=== PATIENT | male | born 1965 | race Two or more races ===

== ENCOUNTER → 2024-03-20 | Outpatient (CLI) | payer OTHER, SELFPAY ==
--- NOTE | 2024-03-20 10:38 | XR_ITS ---
Examination: Foot, left, 3 views Technique: AP, oblique, lateral views foot, 3 views Date and time of exam: March 20, 2024 1148 hours Comparison February 28, 2024 INDICATIONS: History foot surgery FINDINGS: Prominent osteopenia Stable alignment at the stabilization site first tarsometatarsal joint Significant healing osteotomy proximal phalanx first digit with satisfactory alignment Orthopedic screws distal second metatarsal healed probable osteotomy Stable alignment at the stabilization site proximal interphalangeal joint second digit IMPRESSION: Postsurgical changes with satisfactory alignment
== END | disposition home or self-care (01) ==
PROVIDERS: PCP Internal Medicine; Referring Provider Student in an Organized Health Care Education/Training Program; Visit Provider Student in an Organized Health Care Education/Training Program
DX: Z47.89 Encounter for other orthopedic aftercare (principal)
CPT/HCPCS: 73630

== ENCOUNTER 2024-07-04 10:02 | Outpatient (AMB) | payer OTHER, SELFPAY ==
--- NOTE | 2024-07-04 10:14 | PD.ORTHCLVIS ---
Vital signs 07/04/24 10:15 Height 1.73 m Height Method Stated Weight 99.025 kg Weight Measurement Method Standing Scale BMI 33.2 BP 128/84 Blood Pressure Source Automatic Cuff Blood Pressure Location Left Upper Arm Position Sitting Respiration 18 Pulse 67 Pulse Source Monitor Temp 98.6 F Temp Source Temporal Artery Scan Pulse Oximetry (%) 95 Oxygen Delivery Method Room Air Med/Allergies Allergies & Medications Allergies NKA* Allergy (Uncoded 07/04/24 10:15) Medication Reconciliation cholecalciferol (vitamin D3) 125 mcg (5,000 unit) tablet (Vitamin D3) 1 tab PO QDAY ##0 04/27/17 [History Confirmed 07/04/24] magnesium 30 mg tablet 30 mg PO QDAY #0 tabs 04/27/17 [History Confirmed 07/04/24] simvastatin 10 mg tablet 10 mg PO QDAY ##90 04/27/17 [History Confirmed 07/04/24] Exam Exam Patient is in no acute distress and is cooperative with the examination today. Breathing is nonlabored. In no respiratory distress. Patient has no paraspinal tenderness. Spinal deformity cannot be appreciated. The gait of the patient is nonantalgic Bilateral extremities were evaluated and demonstrates sensation intact to light touch. Palpable pedal pulses are present. No significant edema is present. Bilateral knees were examined and the patient has full strength and range of motion.. The left hip was examined. Patient was able to flex to 90 degrees, adduct to 30 degrees, abduct to 40 degrees, internally rotate to 20 degrees, and externally rotate to 20 degrees. Patient has a negative logroll. Stinchfield is negative. The patient is nontender diffusely to touch. The right hip was examined. Patient was able to flex to 90 degrees, adduct to 30 degrees, abduct to 40 degrees, internally rotate to 20 degrees, and externally rotate to 20 degrees. Patient has a negative logroll. The stinchfield is negative. I reviewed an x-ray from August 2023. This demonstrates preserved joint spaces with minimal arthritis. There is a slight step-off on the acetabulum but this actually is normal to me. He has no pain at all and thus I will not get further imaging for this unless he has persistent pain Assessment and Plan Problem List (1) Arthritis of right hip: Status: Acute Plan: Patient is a pleasant 58-year-old female With right hip pain that has largely resolved. He has mild right hip arthritis. We discussed nonoperative Options including activity modification, anti-inflammatories. He reports he is doing well and does not want any treatment right now. We discussed we can give him meloxicam if he wants. 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 (3493-4792) MA Intake Visit Data Collection New Patient or Established: New Patient (never been to [facility]) Reason for Visit:: RIGHT HIP PAIN Seen by Clinical Staff ONLY (RN/MA): No Exercise Physiologist Certified Required: No PCP or OBGYN visit in last 3 months: Yes Hx Now: No Do You Feel Safe at Home: Yes Authorities Contacted: N/A Questionairres Past Medical History Past Medical History Have you ever been diagnosed with any of the following: Cardiology Problems Hypercholesterolemia: Yes Respiratory Problems Smoking: No Smoking Cessation Counseling: No Smoking Exposure: No Subjective Visit Visit for: new patient and hip (RIGHT) Immunization / Flu Flu Vaccine in the Last 12 Months: No Flu Vaccine Exclusion Criteria: Refused by Patient History of Present Illness Chief complaint: Right hip pain Patient is a pleasant 58-year-old male with groin pain that occurred 1 year ago. The pain has largely resolved. He had bunion surgery on the contralateral side and reports that this did exacerbate the pain. He has no difficulty putting on socks and shoes. The pain is only very intermittent and has largely resolved at this time Pain Pain level (0-10): 4 Pain duration: WITH MOVEMENT Pain location: outside (lateral) Pain quality: aching Pain timing: other (specify) (WHEN BENDING/REACHING) Associated signs & symptoms: none Ambulatory data Ambulatory device: none Treatments Improvement with previous injections: No Improvement with PT: No Improvement with NSAIDS: no Review of Systems Review of Systems: All systems negative unless otherwise noted in HPI.
[2024-07-04 10:15] VITALS: BP 128/84; PULSE 67; RESP 18; TEMP 37; O2SAT 95; BMI 33.2
== END 2024-07-04 10:27 | disposition home or self-care (01) ==
LOC: HODSRG 10:02
PROVIDERS: PCP Internal Medicine; Referring Provider Internal Medicine; Supervising Provider Orthopaedic Surgery Adult Reconstructive Orthopaedic Surgery; Visit Provider Orthopaedic Surgery Adult Reconstructive Orthopaedic Surgery
DX: M16.11 Unilateral primary osteoarthritis, right hip (principal)
CPT/HCPCS: 99204; G0463

== ENCOUNTER 2025-04-03 10:20 | Day surgery (SDC) | payer OTHER, SELFPAY ==
--- NOTE | 2025-04-02 07:00 | EKG_ITS ---
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
[2025-04-02 07:07] VITALS: BMI 32.9
[2025-04-02 07:42] LABS: Collection Type, Urine Clean Catch; Squamous Epithelial Cell,Urine 0 /hpf (0-5)
[2025-04-02 08:52] LABS: Basophils # (Auto) 0.0 Thou/mm3 (0.0-0.2); Basophils % (Auto) 1 % (0-2.5); Eosinophils # (Auto) 0.1 Thou/mm3 (0.0-0.5); Eosinophils % (Auto) 3 % (0-10); Hematocrit 44.8 % (41.0-53.0); Hemoglobin 15.0 g/dL (13.5-16.0); Immature Granulocytes Auto 0.01 Thou/mm3 (0.00-0.00); Lymphocytes # (Auto) 1.3 Thou/mm3 (1.0-4.8); Lymphocytes % (Auto) 28 % (10-50); Mean Corpuscular HGB Conc 33.5 g/dl (31.0-37.0); Mean Corpuscular Hemoglobin 31.9 pg (25.0-35.0); Mean Corpuscular Volume 95 fL (80-100); Monocytes # (Auto) 0.5 Thou/mm3 (0.0-0.8); Monocytes % (Auto) 10 % (0-12); Neutrophils # (Auto) 2.8 Thou/mm3 (1.8-7.7); Neutrophils % (Auto) 59 % (37-80); Nucleated Red Blood Cell # 0.00 Thou/mm3 (0.00-0.00); Nucleated Red Blood Cell % 0 /100 WBC (0); Platelet Count 224 Thou/mm3 (140-440); RDW Standard Deviation 44.3 fL (35.1-43.9); Red Blood Count 4.70 Miln/mm3 (4.50-5.90); White Blood Count 4.7 Thou/mm3 (3.8-10.6)
[2025-04-02 08:53] LABS: Bilirubin,Urine Negative (Negative); Blood,Urine Negative (Negative); Clarity,Urine Clear (Clear/Hazy); Color,Urine Lt-Yellow (Lt Yel-Yel); Glucose, Urine Negative (Negative); Ketones,Urine Negative (Negative); Leukocyte Esterase,Urine Negative (Negative); Nitrite,Urine Negative (Negative); PH,Urine 6.5 (5.0-7.0); Protein,Urine Negative (Neg - Trace); RBC,Urine 4 /hpf (0-3); Specific Gravity,Urine 1.020 (1.001-1.035); Urobilinogen,Urine Negative mg/dL (0.0-1.0); WBC,Urine 1 /hpf (0-5)
[2025-04-02 09:15] LABS: Alanine Aminotransferase 30 U/L (10-49); Albumin, Serum 5.0 gm/dL (3.4-4.8); Albumin/Globulin Ratio 2.1 (1.2-2.2); Alkaline Phosphatase 57 U/L (46-116); Anion Gap 9 (7-16); Aspartate Amino Transferase 28 U/L (0-34); BUN/Creatinine Ratio 13 Ratio (12-20); Bilirubin,Total 0.8 mg/dL (0.3-1.2); Blood Urea Nitrogen 14 mg/dL (9-23); Calcium 9.7 mg/dL (8.3-10.6); Calcium (Corrected) 9.7 mg/dL (8.5-10.1); Carbon Dioxide 28.5 mMol/L (20.0-31.0); Chloride 106 mMol/L (98-107); Creatinine (Component) 1.1 mg/dL (0.6-1.3); Estimated Creatinine Clearance 80.1 mL/min (>60); Globulin 2.4 gm/dL (2.3-3.5); Glucose 103 mg/dL (74-106); Osmolality,Calculated 285 (275-295); Potassium 4.4 mMol/L (3.4-5.1); Sodium 143 mMol/L (136-145); Total Protein 7.4 gm/dL (5.7-8.2); eGFR > 60 See Note
--- NOTE | 2025-04-02 09:23 | ESHP_ITS ---
RE: JOJO HERRERA : 1965 DATE OF ADMISSION: 04/02/2025 HISTORY OF PRESENT ILLNESS: Patient is a 59 year old male with elevated PSA of 5.6. He has nocturia x1. His urinary flow is fair. There is no history of urinary burning or blood in the urine. His PSA is high. Patient had a previous biopsy done 5-10 years ago, which he says it was negative for any cancer. PREVIOUS OPERATIONS: Vasectomy. He had a biopsy of prostate in the past and he had a foot surgery on his left foot. SOCIAL HISTORY: He has two children. ALLERGIES: NONE KNOWN. PAST MEDICAL HISTORY: There is no history of diabetes mellitus or hypertension. MEDICATIONS: He takes atorvastatin and for his cholesterol. PHYSICAL EXAMINATION: Clinical examination reveals: HEENT: Normal. NECK: Supple. LUNGS: Clear. HEART: Heart sounds are normal. ABDOMEN: Soft without any organomegaly. There is no guarding, no rigidity. EXTREMITIES: Normal. GENITOURINARY: Phallus is normal. Testes are down in scrotum. RECTAL: Reveals moderately enlarged smooth prostate. There are no hard nodules. IMPRESSION: 1. Prostatism. 2. Prostatic obstruction. 3. Elevated PSA of 5.6. PLAN: Cystoscopy and transrectal prostatic ultrasound and ultrasound-guided prostatic needle biopsy. Planned procedure, risks, and complications have been discussed with the patient. Patient has understood them and agreed to proceed. DT: 09:13:00 TT: 09:23:00 Ref: [id number] - TID: [id number]
--- NOTE | 2025-04-02 15:01 | SUR.PREOP ---
Pt notified to come on at 1000 tomorrow.
[2025-04-03] VITALS (7 sets, daily range): BP systolic 102–127; BP diastolic 68–83; PULSE 58–75; RESP 14–20; TEMP 36.1–36.5; O2SAT 96–99; BMI 32.3
[2025-04-03] MEDS: RINGERS LACTATED 1000 ML 1,000 ML 20 ML IV (10:55)
--- NOTE | 2025-04-03 12:00 | XR_ITS ---
EXAMINATION: Transrectal prostate sonography Date and time: April 03, 2025, 12:50 p.m. INDICATIONS: Prostate biopsies by physician in the OR today with ultrasound transrectal guidance TECHNIQUE AND FINDINGS: Transrectal prostate sonographic images Prostate volume 27.31 cc IMPRESSION: Transrectal prostate guidance for prostate biopsies by physician today
--- NOTE | 2025-04-03 13:17 | SUR.PHASEII ---
1317: Pt. AAOx4, vitals stable, breathing unlabored, no complaint of pain or nausea, no dressing in place, no active bleed noted, report received from Kurt CHEUNG and Holden CARABALLO.
--- NOTE | 2025-04-03 13:50 | SUR.PHASEII ---
1350: Pt. AAOx4, vitals stable, breathing unlabored, no complaint of pain or nausea, no dressing in place, no active bleed noted, pt. tolerated sips of water well, pt. ambulated to wheelchair with steady gait and no assist, no complications. Gave discharge instructions to the pt. and his ride, both verbalized understanding and had no further questions. Pt. left with all personal belongings.
--- NOTE | 2025-04-03 21:17 | ESOP_ITS ---
RE: JOJO HERRERA : 1965 DATE OF OPERATION: 04/03/2025 PREOPERATIVE DIAGNOSES: Prostatism, elevated PSA of 5.6, and prostatic obstruction. POSTOPERATIVE DIAGNOSES: Prostatism, elevated PSA of 5.6, and prostatic obstruction. PROCEDURES PERFORMED: Cystoscopy, urethral dilatation, and transrectal prostatic ultrasound with ultrasound-guided prostatic needle biopsy. ANESTHESIA: Monitored anesthesia by Mr. Vasile Sands CRNA INDICATION: Patient is a 59-year-old male with elevated PSA of 5.6, nocturia, and slowing urinary stream. Rectally, he has a moderately enlarged smooth prostate without any hard nodules. Patient had a previous biopsy done about 10 years ago which patient says it was benign. Patient was now scheduled to have cystoscopy and transrectal prostatic ultrasound with ultrasound-guided prostatic needle biopsy. Planned procedure, risks, and complications have been discussed with the patient. Patient understood them and agreed to proceed. DESCRIPTION OF PROCEDURE: After the patient was brought to the operating table under adequate monitored anesthesia and dorsal lithotomy position, parts were prepped and draped in the usual fashion. Cystoscopy was then carried out which revealed adequate urethral meatus, normal-appearing urethra, and moderately enlarged bilobed prostate. Scope was introduced into the bladder. Residual urine is about 2 ounces, yellow and clear, and was sent for culture and sensitivity examination. There are no intravesical stones and no intravesical tumors. The bladder had some trabeculation and a small diverticuli. The scope was withdrawn. Patient was then turned in left lateral position. Transrectal prostatic ultrasound was carried out. Biopsies were obtained from both lobes using ultrasound guidance. Prostatic volume was measured at 27.3 cm3. Patient tolerated the entire procedure well and left the room in good condition. DT: 13:23:53 TT: 21:16:00 Ref: [id number] - TID: [id number]
== END 2025-04-03 13:50 | disposition home or self-care (01) ==
PROVIDERS: Anesthesiology; PCP Internal Medicine; Referring Provider Surgery; Visit Provider Surgery
PROC: (CPT 55700; principal; 2025-04-03 12:00)
PROC: 0TJB8ZZ Inspection of Bladder, Via Natural or Artificial Opening Endoscopic (ICD-10-PCS; CPT 52000; 2025-04-03 12:00)
DX: N40.1 Benign prostatic hyperplasia with lower urinary tract symptoms (principal); N13.8 Other obstructive and reflux uropathy; R35.1 Nocturia; Z01.810 Encounter for preprocedural cardiovascular examination; N32.89 Other specified disorders of bladder; N32.3 Diverticulum of bladder
CPT/HCPCS: 55700; 52000; 36415; 76942; 80053; 81001; 85025; 87086; 93005; A4217; A4649; J0131; J0694; J2250; J2704; J3010; J7120